=== PATIENT | female | born 1965 | race Caucasian/White ===

== ENCOUNTER → 2017-03-12 23:20 | Emergency (ER) | payer MEDICARE, OTHER | END | disposition left against medical advice (07) | LOC: CED 23:20 | DX: Z53.21 Procedure and treatment not carried out due to patient leaving prior to being seen by health care provider (principal) ==

== ENCOUNTER → 2017-07-04 | Outpatient (CLI) | payer OTHER ==
--- NOTE | ~2017-07-04 | US6 ---
[facility] A Service of [facility] RADIOLOGY TEXT RESULTS PATIENT: MICHELLE OMRIN LOCATION: [facility] : 69 UNIT #: [id number] AGE: [address]: Kendall Lewis MD SEX: F ORDER DR: [id number] [facility] [address] [place], [place] [address] [id number] O MR#: [id number] Acc #: [id number] NAME: MICHELLE MORIN : 1965 SEX: F STUDY DATE/TIME: 07/04/2017 8:22 UNIT: [facility] ROOM: STUDY DESCRIPTION: US Abdominal Limited Attending Physician: Kendall Lewis M.D. Referring Physician: Kendall Lewis M.D. Ordering Physician: Kendall Lewis M.D. Primary Care Physician: Ricco Arizmendi M.D. MEDICAL IMAGING REPORT This report is preliminary unless electronic signature is present EXAM Right upper quadrant ultrasound, 07/04/2017. HISTORY Right upper quadrant abdominal pain and bloating for 3 months. Endstage renal disease, hypertension, and hyperlipidemia. Epigastric abdominal pain and nausea for 3 months. FINDINGS The liver demonstrates an increase in echotexture with attenuation of the ultrasound beam characteristic of fatty infiltration. The intra and extrahepatic bile ducts are not dilated. The gallbladder is normal with no evidence of cholelithiasis, wall thickening or pericholecystic fluid. The common duct measured 5 mm. The pancreas is normal. The right kidney is atrophic measuring 7.4 cm in greatest diameter and contains small cysts. There is cortical thinning and increased right renal cortical echogenicity characteristic of medical renal disease. IMPRESSION 1. Fatty infiltration of the liver. 2. Normal gallbladder. 3. Atrophic right kidney containing cysts and demonstrating increased cortical echogenicity, characteristic of medical renal disease. Dictated by... Mando Mejia M.D. THIS IS AN ELECTRONICALLY VERIFIED REPORT Mando Mejia M.D. at 07/04/2017 5:54 PM KRT/stephania [facility] A Service of [facility] RADIOLOGY TEXT RESULTS PATIENT: MICHELLE MORIN LOCATION: [facility] ACC #: [id number] : [birth year] UNIT #: [id number] AGE: [address]: Kendall Lewis MD SEX: F ORDER DR: TD: 07/04/2017 12:56 JOB #: [id number] MEDICAL IMAGING REPORT Page 1 of 1 COPY
== END | disposition home or self-care (01) ==
LOC: CGUS 07:30
DX: R10.13 Epigastric pain (principal); R11.0 Nausea; K76.0 Fatty (change of) liver, not elsewhere classified; N26.1 Atrophy of kidney (terminal); Q61.02 Congenital multiple renal cysts; R93.421 Abnormal radiologic findings on diagnostic imaging of right kidney
CPT/HCPCS: 76705